=== PATIENT | male | born 2000 | race Caucasian/White ===

== ENCOUNTER 2020-03-13 06:15 | Emergency (ER) | payer BC, OTHER ==
[2020-03-13] MEDS ORDERED: Tetracaine HCl/PF 0.5% 4 ML Bottle EYERT ONE (06:31)
[2020-03-13] MEDS ORDERED: Fluorescein 1 MG Ophth Strip EYERT ONE (06:37)
--- NOTE | 2020-03-13 07:04 | EDM.PDOC ---
ED HPI GENERAL MEDICAL PROBLEM - General Chief Complaint: Eye Problems Stated Complaint: RIGHT EYE SOMETHING IN IT Time Seen by Provider: 03/13/20 06:30 Source of Information: Reports: Patient History Limitations: Reports: No Limitations - History of Present Illness INITIAL COMMENTS - FREE TEXT/NARRATIVE: Working under car, felt something in right eye yesterday. Not improved. Flushed. No change in vision, scratching sensation upper Right Eye Pain Score (Numeric/FACES): 5 - Related Data Allergies Allergy/AdvReac Type Severity Reaction Status Date / Time No Known Allergies Allergy Verified 03/13/20 06:29 Home Meds: Home Meds . [No Known Home Meds] 03/13/20 [History] Past Medical History HEENT History: Reports: Allergic Rhinitis Social & Family History - Family History Family Medical History: Noncontributory - Tobacco Use Smoking Status *Q: Current Every Day Smoker Years of Tobacco use: 2 Packs/Tins Daily: 0.2 Second Hand Smoke Exposure: Yes - Recreational Drug Use Recreational Drug Use: No ED ROS GENERAL - Review of Systems Review Of Systems: Comprehensive ROS is negative, except as noted in HPI. ED EXAM GENERAL W FULL EYE - Physical Exam Exam: See Below Exam Limited By: No Limitations General Appearance: Alert Eye Exam: Right Eye: Foreign Body, Bilateral Eye: EOMI, PERRL Eyelids: Right: Normal Appearance (small fb inner right lid), Foreign Body, Lid Everted for Exam Conjunctiva & Sclera: Right: Injected (mild) Cornea Exam: Right: Normal Appearance, Examined with Flourescein Pupils: Normal Accommodation Pupillary Size: Bilateral: 4 mm Pupillary Reaction: Bilateral: Brisk Ears: Normal External Exam, Hearing Grossly Normal Throat/Mouth: Normal Voice Respiratory/Chest: No Respiratory Distress, Normal Breath Sounds Extremities: Normal Range of Motion Neurological: Alert, Oriented, Normal Cognition Course - Vital Signs Last Recorded V/S: Last Vital Signs Temp 97.3 F 03/13/20 06:30 Pulse 74 03/13/20 06:30 Resp 18 03/13/20 06:30 BP 129/76 03/13/20 06:30 Pulse Ox 97 03/13/20 06:30 - Orders/Labs/Meds Meds: Medications Discontinued Medications Generic Name Dose Route Start Last Admin Trade Name Freq PRN Reason Stop Dose Admin Fluorescein Sodium 1 mg 03/13/20 06:37 06/12/20 06:40 Ful-Mayda EYERT 03/13/20 06:38 1 mg ONETIME ONE Administration Tetracaine HCl 1 ml 03/13/20 06:31 03/13/20 06:35 Tetracaine 0.5% Steri-Unit Sharon EYERT 03/13/20 06:32 2 drop ASDIRECTED ONE Administration Departure - Departure Time of Disposition: 07:00 Disposition: Home, Self-Care 01 Condition: Good Clinical Impression: Foreign body of right eye Qualifiers: Encounter type: initial encounter Qualified Code(s): T15.91XA - Foreign body on external eye, part unspecified, right eye, initial encounter - Discharge Information *PRESCRIPTION DRUG MONITORING PROGRAM REVIEWED*: No *COPY OF PRESCRIPTION DRUG MONITORING REPORT IN PATIENT EDOUARD: No Instructions: Eye Foreign Body, [id number] Referrals: PCP,None [Ordering Only Provider] - Forms: ED Department Discharge Additional Instructions: rest eye eye moisturizing drops or lubricant safety goggles at work follow up with eye clinic if increased pain, not improving or blurring of vision Sepsis Event Note (ED) - Evaluation Sepsis Screening Result: No Definite Risk
== END 2020-03-13 07:15 | disposition home or self-care (01) ==
LOC: DL.ED 06:15
DX: T15.91XA Foreign body on external eye, part unspecified, right eye, initial encounter (principal); F17.210 Nicotine dependence, cigarettes, uncomplicated
CPT/HCPCS: 99283

== ENCOUNTER 2021-02-04 16:47 | Emergency (ER) | payer OTHER ==
--- NOTE | 2021-02-04 17:25 | EDM.PDOC ---
ED HPI GENERAL MEDICAL PROBLEM - General Chief Complaint: ENT Problem Stated Complaint: SOMETHING IN RIGHT EYE Time Seen by Provider: 02/04/21 17:25 Source of Information: Reports: Patient, Old Records, RN, RN Notes Reviewed History Limitations: Reports: No Limitations - History of Present Illness INITIAL COMMENTS - FREE TEXT/NARRATIVE: Pt presents to ER with c/o dirt or metal FB in Rt eye. Pt was on his back hammering a bolt under a car when something went in his right eye. Pt reports mild eye pain, but has a FB sensation. Denies visual change or blurriness. Onset: Today, Sudden Duration: Constant Location: Reports: Other (Rt eye) Quality: Reports: Ache, Burning Severity: Mild Improves with: Reports: None Worsens with: Reports: None Associated Symptoms: Reports: No Other Symptoms - Related Data Allergies Allergy/AdvReac Type Severity Reaction Status Date / Time No Known Allergies Allergy Verified 02/04/21 17:41 Home Meds: Home Meds . [No Known Home Meds] 03/13/20 [History] Past Medical History HEENT History: Reports: Allergic Rhinitis Social & Family History - Family History Family Medical History: No Pertinent Family History - Living Situation & Occupation Occupation: Employed ED ROS GENERAL - Review of Systems Review Of Systems: Comprehensive ROS is negative, except as noted in HPI. ED EXAM GENERAL W FULL EYE - Physical Exam Exam: See Below Exam Limited By: No Limitations General Appearance: Alert, WD/WN, No Apparent Distress Eye Exam: Right Eye: Conjunctival Injection, Corneal Abrasion (No FB), Left Eye: Normal Inspection, Bilateral Eye: EOMI, PERRL Eyelids: Right: Lid Everted for Exam, Bilateral: Normal Appearance Conjunctiva & Sclera: Right: Injected, Left: Normal Appearance Cornea Exam: Right: Corneal Abrasion, Left: Normal Appearance Extraocular Movements: Bilateral: Intact Pupils: Normal Accommodation Pupillary Size: Bilateral: 3 mm Pupillary Reaction: Bilateral: Brisk Throat/Mouth: Normal Voice Head: Atraumatic, Normocephalic Respiratory/Chest: No Respiratory Distress Neurological: Alert, Oriented, CN II-XII Intact, Normal Cognition, No Motor/Sensory Deficits Psychiatric: Normal Mood Skin Exam: Warm, Dry, Intact, Normal Color, No Rash Course - Vital Signs Last Recorded V/S: Last Vital Signs Temp 97.7 F 02/04/21 17:18 Pulse 69 05/06/21 17:18 Resp 16 02/04/21 17:18 BP 108/60 02/04/21 17:18 Pulse Ox 99 02/04/21 17:18 - Orders/Labs/Meds Meds: Medications Discontinued Medications Generic Name Dose Route Start Last Admin Trade Name Cadence PRN Reason Stop Dose Admin Fluorescein Sodium 1 mg 02/04/21 17:27 02/04/21 17:49 Fluorescein 1 Mg Ophth Strip EYERT 02/04/21 17:28 1 mg ONETIME ONE Administration Gentamicin Sulfate 1 ml 02/04/21 17:28 02/04/21 17:49 Gentamicin 0.3% Ophth Soln 5 Ml Bottle EYERT 02/04/21 17:29 1 drop ONETIME ONE Administration Tetracaine HCl 1 ml 02/04/21 17:28 02/04/21 17:49 Tetracaine Hcl/Pf 0.5% 4 Ml Bottle EYERT 02/04/21 17:29 1 drop ONETIME ONE Administration Departure - Departure Time of Disposition: 17:47 Disposition: Home, Self-Care 01 Condition: Good Clinical Impression: Corneal abrasion, right Qualifiers: Encounter type: initial encounter Qualified Code(s): S05.01XA - Injury of conjunctiva and corneal abrasion without foreign body, right eye, initial encounter - Discharge Information *PRESCRIPTION DRUG MONITORING PROGRAM REVIEWED*: Not Applicable *COPY OF PRESCRIPTION DRUG MONITORING REPORT IN PATIENT EDOUARD: Not Applicable Instructions: Corneal Abrasion, [id number] Forms: ED Department Discharge Additional Instructions: Gentamicin Ophthalmic Solution 0.3% One drop into right eye four times a day for five days. Do not rub, touch, or wipe your right eye for at least 3 days. Wear sunglasses to reduce eye irritation. Use Ibuprofen 200mg: Take 4 tablets by mouth every 8 hours with food, as needed for pain. Do not exceed 12 tablets (2400mg) in one day. Follow up in eye clinic if not completely improved by Monday, February 08. Sepsis Event Note (ED) - Evaluation Sepsis Screening Result: No Definite Risk - Focused Exam Vital Signs: Vital Signs Temp Pulse Resp BP Pulse Ox 02/04/21 17:18 97.7 F 69 16 108/60 99
[2021-02-04] MEDS ORDERED: Fluorescein 1 MG Ophth Strip EYERT ONE (17:27)
[2021-02-04] MEDS ORDERED: Gentamicin 0.3% Ophth Soln 5 ML Bottle EYERT ONE (17:28)
[2021-02-04] MEDS ORDERED: Tetracaine HCl/PF 0.5% 4 ML Bottle EYERT ONE (17:28)
== END 2021-02-04 18:03 | disposition home or self-care (01) ==
LOC: DL.ED 16:47
DX: S05.01XA Injury of conjunctiva and corneal abrasion without foreign body, right eye, initial encounter (principal); X58.XXXA Exposure to other specified factors, initial encounter
CPT/HCPCS: 99282; 99283; A9270